=== PATIENT | female | born 1955 | race Caucasian/White ===

== ENCOUNTER 2017-04-13 09:04 | Emergency (ER) | payer OTHER ==
[~2017-04-13] VITALS: Ht 157.5 cm; Wt 77.3 kg
[~2017-04-13 09:04] MED LIST: BENTYL10 MG PO; ESTRADERM; LAMICTAL100 MG PO; LEVOTHROID88 MCG; LEXAPRO10 MG PO; PAXIL; SYNTHROID; TEGRETOL; TRAZODONE HCL50 MG PO; TROKENDI XR50 MG PO; ZETIA10 MG PO; ZOFRAN4 MG PO
[2017-04-13 10:09] LABS: ADD MIUA? NO; BILIRUBIN NEGATIVE; BLOOD NEGATIVE; COLOR YELLOW ((YELLOW)); GLUCOSE (STRIP) NEGATIVE; KETONES NEGATIVE; LEUKOCYTES NEGATIVE; NITRITE NEGATIVE; PROTEIN (STRIP) NEGATIVE; SPECIFIC GRAVITY 1.012 (1.000-1.030); UCUL ADDED? NO; UROBILINOGEN 0.2 MG/DL (0.2-1.0)
[2017-04-13 10:24] LABS: HEMATOCRIT 41.9 % (36.0-46.0); MCH 29.6 PG (29.0-34.0); MCHC 32.5 G/DL (30.0-36.0); MCV 91.1 FL (83-99); MEAN PLAT.VOLUME 9.5 uM^3 (9.5-12.4); PLATELET COUNT 290 K/uL (156-360); RBC DIS.WIDTH-SD 43.7 % (39-53); WHITE BLOOD COUNT 7.1 K/uL (4.1-10.2)
[2017-04-13 10:33] LABS: CHLORIDE 110 mEq/L (99-109); SODIUM 141 mEq/L (136-147)
[2017-04-13 10:36] LABS: GLUCOSE 101 mg/dL (70-99)
[2017-04-13 10:37] LABS: ANION GAP 8 MEQ/L (2-14)
[2017-04-13 10:38] LABS: TOTAL BILIRUBIN 0.5 mg/dL (0.0-1.0)
[2017-04-13 10:39] LABS: ALKALINE PHOSPHATASE 40 IU/L (3-129); GFR ESTIMATE (CALCULATED) > 59 mL/min/
[2017-04-13 10:40] LABS: UREA NITROGEN (BUN) 19 mg/dL (9-23)
[2017-04-13 13:24] LABS: TROP-I INTERPRETATION NEGATIVE; TROPONIN-I < 0.01 ng/mL (0.0-0.30)
[2017-04-13] MEDS ORDERED: FLAGYL500 MG PO (15:08)
[2017-04-13] MEDS ORDERED: CIPRO500 MG PO (15:08)
[2017-04-13] MEDS ORDERED: ULTRAM50 MG PO (15:13)
[2017-04-13 15:33] VITALS: BP 132/84
== END 2017-04-13 15:34 | disposition home or self-care (01) ==
LOC: EME 09:04
PROVIDERS: Nurse Practitioner Family
DX: K57.92 Diverticulitis of intestine, part unspecified, without perforation or abscess without bleeding (principal); E78.5 Hyperlipidemia, unspecified; R56.9 Unspecified convulsions
CPT/HCPCS: 71020; 74177; 80053; 81003; 84484; 85027; 93005; 99281; 99285; J1885; J7030

== ENCOUNTER 2018-02-04 16:16 | Observation (INO) | payer OTHER ==
[~2018-02-04] VITALS: Ht 157.5 cm; Wt 82.0 kg
[~2018-02-04 16:16] MED LIST changes: +CIPRO500 MG PO; +FLAGYL500 MG PO; +LEVO-T88 MCG PO; -LEVOTHROID88 MCG; -LEXAPRO10 MG PO; +LEXAPRO20 MG PO; +ULTRAM50 MG PO
[2018-02-04 17:21] LABS: HEMATOCRIT 42.5 % (36.0-46.0); HEMOGLOBIN 14.4 G/DL (11.9-15.5); MCH 31.3 PG (29.0-34.0); MCHC 33.9 G/DL (30.0-36.0); MCV 92.4 FL (83-99); PLATELET COUNT 276 K/uL (156-360); RBC DIS.WIDTH-CV 12.9 % (11.8-14.6); RBC DIS.WIDTH-SD 43.5 % (39-53); WHITE BLOOD COUNT 5.6 K/uL (4.1-10.2)
[2018-02-04 17:29] LABS: CHLORIDE 109 mEq/L (99-109); POTASSIUM 3.8 mEq/L (3.7-5.4); SODIUM 143 mEq/L (136-147)
[2018-02-04 17:31] LABS: GLUCOSE 95 mg/dL (70-99)
[2018-02-04 17:35] LABS: GFR ESTIMATE (CALCULATED) > 59 mL/min/; UREA NITROGEN (BUN) 17 mg/dL (9-23)
[2018-02-04 17:42] LABS: TROP-I INTERPRETATION NEGATIVE; TROPONIN-I < 0.01 ng/mL (0.0-0.30)
[2018-02-04 19:24] LABS: MAGNESIUM 2.5 mg/dL (1.3-2.7)
[2018-02-04] MEDS ORDERED: FIORICET 50-301 EAC1 PO (19:30)
[2018-02-04 20:01] LABS: D-DIMER ELISA < 150.00 ng/mLDDU (<230)
[2018-02-04 20:07] LABS: THYROTROPIN (TSH) 1.1 MIU/L (0.4-5.5)
[2018-02-04 22:11] LABS: APPEARANCE CLEAR ((CLEAR)); BILIRUBIN NEGATIVE; BLOOD NEGATIVE; COLOR YELLOW ((YELLOW)); GLUCOSE (STRIP) NEGATIVE; KETONES 20; LEUKOCYTES TRACE; NITRITE NEGATIVE; PROTEIN (STRIP) NEGATIVE; SPECIFIC GRAVITY 1.024 (1.000-1.030); UROBILINOGEN 0.2 MG/DL (0.2-1.0)
[2018-02-04 22:15] VITALS: BP 121/64
[2018-02-04 22:18] LABS: BACTERIA NONE SEEN /HPF; EPITHELIAL CELLS RARE /HPF; MUCUS TRACE /LPF; RED BLOOD CELLS 0-5 /HPF (0-5); WHITE BLOOD CELLS 0-5 /HPF (0-5)
[2018-02-04 22:36] LABS: HDL CHOLESTEROL 58 MG/DL (Desirable>=50); LDL CHOLESTEROL 113 mg/dL (Desirable<100); NON-HDL CHOLESTEROL 141 mg/dL (Desirable<160); TOTAL CHOLESTEROL 199 mg/dL (Desirable<200); TRIGLYCERIDES 141 MG/DL (Normal: <150)
[2018-02-04 23:41] VITALS: BP 119/63
[2018-02-05 00:58] LABS: TROP-I INTERPRETATION NEGATIVE; TROPONIN-I < 0.01 ng/mL (0.0-0.30)
[2018-02-05 04:18] VITALS: BP 111/56
[2018-02-05 05:48] LABS: HEMATOCRIT 40.4 % (36.0-46.0); HEMOGLOBIN 13.2 G/DL (11.9-15.5); MCH 29.8 PG (29.0-34.0); MCHC 32.7 G/DL (30.0-36.0); MCV 91.2 FL (83-99); PLATELET COUNT 267 K/uL (156-360); RBC DIS.WIDTH-CV 12.7 % (11.8-14.6); RBC DIS.WIDTH-SD 42.5 % (39-53); RED BLOOD COUNT 4.43 M/uL (3.80-5.20); WHITE BLOOD COUNT 5.1 K/uL (4.1-10.2)
[2018-02-05 06:11] LABS: TROP-I INTERPRETATION NEGATIVE; TROPONIN-I < 0.01 ng/mL (0.0-0.30)
[2018-02-05 06:13] LABS: CHLORIDE 110 MEQ/L (99-109); CREATININE 1.1 MG/DL (0.6-1.3); GFR ESTIMATE (CALCULATED) 54 mL/min/; GLUCOSE 90 mg/dL (70-99); SODIUM 143 MEQ/L (136-147); UREA NITROGEN (BUN) 18 mg/dL (9-23)
[2018-02-05 07:25] VITALS: BP 127/70
[2018-02-05 11:02] VITALS: BP 111/65
[2018-02-05] MEDS ORDERED: ASPIR-LOW81 MG PO (13:41)
== END 2018-02-05 14:20 | disposition home or self-care (01) ==
LOC: EME 16:16 → EDOF 20:34 → 5WEST 20:34 → EDOF 20:34 → ENRESERV 21:00 → 5WEST 22:10
PROVIDERS: Internal Medicine; Physician Assistant
DX: R07.9 Chest pain, unspecified (principal); R00.2 Palpitations; I49.3 Ventricular premature depolarization; R20.0 Anesthesia of skin; E03.9 Hypothyroidism, unspecified; G40.909 Epilepsy, unspecified, not intractable, without status epilepticus; E78.5 Hyperlipidemia, unspecified; F32.9 Major depressive disorder, single episode, unspecified; G43.909 Migraine, unspecified, not intractable, without status migrainosus; Z90.710 Acquired absence of both cervix and uterus; Z90.49 Acquired absence of other specified parts of digestive tract
CPT/HCPCS: 71046; 80048; 80061; 81003; 83735; 84443; 84484; 85027; 85379; 93005; 93306; 99281; 99284; G0378; J1644